=== PATIENT | female | born 1970 ===

== ENCOUNTER 2020-02-20 14:11 | Emergency (ER) | payer OTHER ==
[2020-02-20] MEDS ORDERED: KETOROLAC 15 MG/ML 1 ML VIAL IVP STA (14:59)
[2020-02-20] MEDS ORDERED: SODIUM CHLORIDE 0.9% 1,000 ML IV ONE (14:59)
[2020-02-20] MEDS ORDERED: SODIUM CHLORIDE 0.9% 1,000 ML IV SCH (15:00)
--- NOTE | 2020-02-20 15:02 | ED ---
General Adult HPI - General Chief complaint: Nausea/Vomiting/Diarrhea Stated complaint: Diarrhea Time Seen by Provider: 02/20/20 14:51 Source: patient, RN notes reviewed, old records reviewed Mode of arrival: ambulatory Limitations: no limitations - History of Present Illness Initial comments: Patient's 49-year-old female who presents emergency department today for evaluation for concern for diarrhea past 4 days as well as multiple episodes were she feels like she is going to pass out. She states that she has no history of melena is concerned for possible Covid 19 infection. Patient states that she was tested 2 days ago and was negative. Patient reports that she has a significant cough or chest pain at this time. Denies difficulty breathing. She reports that she has been taking Tylenol and [id number] vitamins. Denies any bloody stools. Denies abdominal tenderness. Patient reports history of anemia. - Related Data Home Medications Medication Instructions Recorded Confirmed Acetaminophen Tab [Tylenol Tab] 1,000 mg PO Q4H PRN 02/20/20 02/20/20 Previous Rx's Medication Instructions Recorded Loperamide [Imodium] 2 mg PO QID #12 capsule 02/20/20 Ondansetron Odt [Zofran Odt] 4 mg PO Q8HR PRN #12 tab 02/20/20 Allergies Allergy/AdvReac Type Severity Reaction Status Date / Time No Known Allergies Allergy Verified 02/20/20 16:57 Review of Systems ROS Statement: Those systems with pertinent positive or pertinent negative responses have been documented in the HPI. ROS Other: All systems not noted in ROS Statement are negative. Past Medical History Past Medical History: No Reported History History of Any Multi-Drug Resistant Organisms: None Reported Past Surgical History: No Surgical Hx Reported Past Psychological History: No Psychological Hx Reported Smoking Status: Never smoker Past Alcohol Use History: None Reported Past Drug Use History: None Reported General Exam - General Exam Comments Initial Comments: 49-year-old female. Alert and oriented 3. No distress. Limitations: no limitations General appearance: alert, in no apparent distress Head exam: Present: atraumatic, normocephalic, normal inspection Eye exam: Present: normal appearance, PERRL, EOMI. Absent: scleral icterus, conjunctival injection, periorbital swelling ENT exam: Present: normal exam, mucous membranes moist Neck exam: Present: normal inspection. Absent: tenderness, meningismus, lymphadenopathy Respiratory exam: Present: normal lung sounds bilaterally. Absent: respiratory distress, wheezes, rales, rhonchi, stridor Cardiovascular Exam: Present: regular rate GI/Abdominal exam: Present: soft, normal bowel sounds. Absent: distended, tenderness, guarding, rebound, rigid Extremities exam: Present: normal inspection, full ROM, normal capillary refill. Absent: tenderness, pedal edema, joint swelling, calf tenderness Back exam: Present: normal inspection Neurological exam: Present: alert, oriented X3, CN II-XII intact Psychiatric exam: Present: normal affect, normal mood Course Vital Signs 02/20/20 14:29 Temperature 98.6 F Pulse Rate 78 Respiratory 20 Rate Blood Pressure 132/84 O2 Sat by Pulse 98 Oximetry EKG Findings - EKG Comments: EKG Findings:: EKG performed at 1603 showed normal sinus rhythm normal ECG. Ventricular rate of 67 bpm. MI interval 156. Stressors and 4 ms 84 ms. QT QTc is 422/445 ms. Medical Decision Making - Medical Decision Making 49-year-old female there is healthy presents with diarrhea for the past 4 days lack of appetite. Patient has no significant difficulty breathing. Vitals are stable. Patient has positive for virus infection. Labs are reviewed and unremarkable. Patient was given fluid bolus. Discussed symptom treatment for nausea and diarrhea with Zofran and Imodium. Discussed self when standing following up with PCP. - Lab Data Result diagrams: 02/20/20 15:50 02/20/20 15:50 Lab Results 02/20/20 02/20/20 02/20/20 Range/Units 15:50 15:50 15:50 WBC 5.5 (3.8-10.6) k/uL RBC 5.62 H (3.80-5.40) m/uL Hgb 12.3 (11.4-16.0) gm/dL Hct 39.0 (34.0-46.0) % MCV 69.4 L (80.0-100.0) fL MCH 22.0 L (25.0-35.0) pg MCHC 31.7 (31.0-37.0) g/dL RDW 15.8 H (11.5-15.5) % Plt Count 188 (150-450) k/uL MPV 7.8 Neutrophils % 67 % Lymphocytes % 22 % Monocytes % 6 % Eosinophils % 1 % Basophils % 1 % Neutrophils # 3.7 (1.3-7.7) k/uL Lymphocytes # 1.2 (1.0-4.8) k/uL Monocytes # 0.3 (0-1.0) k/uL Eosinophils # 0.1 (0-0.7) k/uL Basophils # 0.1 (0-0.2) k/uL Hypochromasia Moderate Microcytosis Marked PT 10.0 (9.0-12.0) sec INR 1.0 (<1.2) APTT 23.3 (22.0-30.0) sec Sodium 137 (137-145) mmol/L Potassium 4.7 (3.5-5.1) mmol/L Chloride 105 (98-107) mmol/L Carbon Dioxide 27 (22-30) mmol/L Anion Gap 5 mmol/L BUN 7 (7-17) mg/dL Creatinine 0.45 L (0.52-1.04) mg/dL Est GFR (CKD-EPI)AfAm >90 (>60 ml/min/1.73 sqM) Est GFR (CKD-EPI)NonAf >90 (>60 ml/min/1.73 sqM) Glucose 104 H (74-99) mg/dL Plasma Lactic Acid Jeremiah (0.7-2.0) mmol/L Calcium 9.4 (8.4-10.2) mg/dL Magnesium 1.9 (1.6-2.3) mg/dL Total Bilirubin 0.5 (0.2-1.3) mg/dL AST 24 (14-36) U/L ALT 18 (4-34) U/L Alkaline Phosphatase 64 (38-126) U/L Lactate Dehydrogenase 464 (313-618) U/L C-Reactive Protein <5.0 (<10.0) mg/L Total Protein 7.8 (6.3-8.2) g/dL Albumin 4.2 (3.5-5.0) g/dL Coronavirus (PCR) (Not Detectd) 02/20/20 02/20/20 Range/Units 15:50 15:50 WBC (3.8-10.6) k/uL RBC (3.80-5.40) m/uL Hgb (11.4-16.0) gm/dL Hct (34.0-46.0) % MCV (80.0-100.0) fL MCH (25.0-35.0) pg MCHC (31.0-37.0) g/dL RDW (11.5-15.5) % Plt Count (150-450) k/uL MPV Neutrophils % % Lymphocytes % % Monocytes % % Eosinophils % % Basophils % % Neutrophils # (1.3-7.7) k/uL Lymphocytes # (1.0-4.8) k/uL Monocytes # (0-1.0) k/uL Eosinophils # (0-0.7) k/uL Basophils # (0-0.2) k/uL Hypochromasia Microcytosis PT (9.0-12.0) sec INR (<1.2) APTT (22.0-30.0) sec Sodium (137-145) mmol/L Potassium (3.5-5.1) mmol/L Chloride (98-107) mmol/L Carbon Dioxide (22-30) mmol/L Anion Gap mmol/L BUN (7-17) mg/dL Creatinine (0.52-1.04) mg/dL Est GFR (CKD-EPI)AfAm (>60 ml/min/1.73 sqM) Est GFR (CKD-EPI)NonAf (>60 ml/min/1.73 sqM) Glucose (74-99) mg/dL Plasma Lactic Acid Jeremiah 0.7 (0.7-2.0) mmol/L Calcium (8.4-10.2) mg/dL Magnesium (1.6-2.3) mg/dL Total Bilirubin (0.2-1.3) mg/dL AST (14-36) U/L ALT (4-34) U/L Alkaline Phosphatase (38-126) U/L Lactate Dehydrogenase (313-618) U/L C-Reactive Protein (<10.0) mg/L Total Protein (6.3-8.2) g/dL Albumin (3.5-5.0) g/dL Coronavirus (PCR) Detected A (Not Detectd) - Radiology Data Radiology results: report reviewed Normal chest x-ray. No sign of pneumonia. Disposition Clinical Impression: COVID-19 Disposition: HOME SELF-CARE Condition: Good Instructions (If sedation given, give patient instructions): Acute Diarrhea (ED), Viral Syndrome (ED) Additional Instructions: Patient should quarantine for 14 days. Take the Imodium only as needed for severe diarrhea and nausea medicine as needed. Patient should continue her vitamins. Rest, remain hydrated. Prescriptions: Loperamide [Imodium] 2 mg PO QID #12 capsule Ondansetron Odt [Zofran Odt] 4 mg PO Q8HR PRN #12 tab PRN Reason: Nausea Is patient prescribed a controlled substance at d/c from ED?: No Referrals: None,Stated [Primary Care Provider] - 1-2 days Time of Disposition: 17:29
[2020-02-20 16:08] LABS: Basophils # (A) 0.1 k/uL (0-0.2); Basophils % (A) 1 %; Eosinophils # (A) 0.1 k/uL (0-0.7); Eosinophils % (A) 1 %; HGB 12.3 gm/dL (11.4-16.0); Hypochromasia Moderate; Lymphocytes # (A) 1.2 k/uL (1.0-4.8); Lymphocytes % (A) 22 %; MCHC 31.7 g/dL (31.0-37.0); MCV 69.4 fL (80.0-100.0); Mean Platelet Volume 7.8; Microcytosis Marked; Monocytes # (A) 0.3 k/uL (0-1.0); Monocytes % (A) 6 %; Neutrophils # (A) 3.7 k/uL (1.3-7.7); Neutrophils % (A) 67 %; Platelet Count 188 k/uL (150-450); RBC 5.62 m/uL (3.80-5.40); RDW 15.8 % (11.5-15.5); WBC 5.5 k/uL (3.8-10.6)
[2020-02-20 16:28] LABS: Partial Thromboplastin Time 23.3 sec (22.0-30.0)
[2020-02-20 16:29] LABS: ALT 18 U/L (4-34); AST 24 U/L (14-36); African American GFR (CKD) >90 (>60 ml/min/1.73 sqM); Albumin 4.2 g/dL (3.5-5.0); Alkaline Phosphatase 64 U/L (38-126); Anion Gap 5 mmol/L; Blood Urea Nitrogen 7 mg/dL (7-17); Calcium 9.4 mg/dL (8.4-10.2); Carbon Dioxide 27 mmol/L (22-30); Chloride 105 mmol/L (98-107); Glucose 104 mg/dL (74-99); LDH 464 U/L (313-618); Magnesium 1.9 mg/dL (1.6-2.3); Non-African American GFR(CKD) >90 (>60 ml/min/1.73 sqM); Potassium 4.7 mmol/L (3.5-5.1); Sodium 137 mmol/L (137-145); Total Bilirubin 0.5 mg/dL (0.2-1.3); Total Protein 7.8 g/dL (6.3-8.2)
[2020-02-20 16:31] LABS: C Reactive Protein <5.0 mg/L (<10.0)
--- NOTE | 2020-02-20 16:55 | XR ---
EXAMINATION TYPE: XR chest 1V DATE OF EXAM: 02/20/2020 COMPARISON: NONE HISTORY: Diarrhea. Cough. TECHNIQUE: Single view FINDINGS: Heart and mediastinum are normal. Lungs are clear. Diaphragm is normal. Bony thorax appears normal. IMPRESSION: Normal chest. Normal heart.
[2020-02-20 18:07] VITALS: BP 130/77; PULSE 65; RESP 16; TEMP 98.1
== END 2020-02-20 18:05 | disposition home or self-care (01) ==
LOC: EC 14:11
DX: U07.1 COVID-19 (principal); R19.7 Diarrhea, unspecified
CPT/HCPCS: 36415; 93005; 80053; 83605; 83615; 83735; 85025; 85610; 85730; 86140; 84145; 87635; 71045; 96374; 96361 ×2; 99284; J1885

== ENCOUNTER 2020-02-22 10:02 | Emergency (ER) | payer OTHER ==
[2020-02-22] MEDS ORDERED: IBUPROFEN 600 MG TAB PO STA (10:21)
[2020-02-22] MEDS ORDERED: ACETAMINOPHEN TAB 500 MG TAB PO STA (10:21)
[2020-02-22] MEDS ORDERED: SODIUM CHLORIDE 0.9% 1,000 ML IV ONE (10:21)
[2020-02-22 10:42] LABS: Basophils % (A) 1 %; Eosinophils # (A) 0.2 k/uL (0-0.7); Eosinophils % (A) 3 %; HCT 39.9 % (34.0-46.0); HGB 11.5 gm/dL (11.4-16.0); Hypochromasia Moderate; Lymphocytes # (A) 1.5 k/uL (1.0-4.8); Lymphocytes % (A) 28 %; MCH 19.9 pg (25.0-35.0); MCHC 28.8 g/dL (31.0-37.0); Mean Platelet Volume 7.8; Microcytosis Marked; Monocytes # (A) 0.3 k/uL (0-1.0); Monocytes % (A) 6 %; Neutrophils # (A) 3.3 k/uL (1.3-7.7); Neutrophils % (A) 61 %; Platelet Count 233 k/uL (150-450); RBC 5.78 m/uL (3.80-5.40); WBC 5.4 k/uL (3.8-10.6)
--- NOTE | 2020-02-22 10:42 | ED ---
General Adult HPI - General Chief complaint: Syncope Stated complaint: Dizziness,Nausea,Near Syncope - Revisit Source: patient, RN notes reviewed, old records reviewed Mode of arrival: wheelchair Limitations: physical limitation - History of Present Illness Initial comments: Is a 49-year-old female who was recently diagnosed with COVID. Patient states she's had diarrhea and body aches. Patient states yesterday she was feeling better and today the aches and diarrhea or back so she decided come back to the emergency department. Patient states she got lightheaded but didn't pass out but felt very lightheaded and tired. Patient states the fatigue quite significant. Patient denies any shortness of breath or difficulty breathing. Patient denies any fevers today. Patient denies any loss of taste or smell. Patient denies any chest pain or palpitations. - Related Data Home Medications Medication Instructions Recorded Confirmed Acetaminophen Tab [Tylenol Tab] 1,000 mg PO Q4H PRN 02/20/20 02/22/20 Previous Rx's Medication Instructions Recorded Loperamide [Imodium] 2 mg PO QID #12 capsule 02/20/20 Ondansetron Odt [Zofran Odt] 4 mg PO Q8HR PRN #12 tab 02/20/20 Allergies Allergy/AdvReac Type Severity Reaction Status Date / Time No Known Allergies Allergy Verified 02/22/20 10:35 Review of Systems ROS Statement: Those systems with pertinent positive or pertinent negative responses have been documented in the HPI. ROS Other: All systems not noted in ROS Statement are negative. Past Medical History Past Medical History: No Reported History History of Any Multi-Drug Resistant Organisms: None Reported Past Surgical History: No Surgical Hx Reported Past Psychological History: No Psychological Hx Reported Smoking Status: Never smoker Past Alcohol Use History: None Reported Past Drug Use History: None Reported General Exam - General Exam Comments Initial Comments: GENERAL: Patient is well-developed and well-nourished. Patient is nontoxic and well- hydrated and is in no acute distress. ENT: Neck is soft and supple. No significant lymphadenopathy is noted. Oropharynx is clear. Moist mucous membranes. Neck has full range of motion without eliciting any pain. EYES: The sclera were anicteric and conjunctiva were pink and moist. Extraocular movements were intact and pupils were equal round and reactive to light. Eyelids were unremarkable. PULMONARY: Unlabored respirations. Good breath sounds bilaterally. No audible rales rhonchi or wheezing was noted. CARDIOVASCULAR: There is a regular rate and rhythm without any murmurs gallops or rubs. ABDOMEN: Soft and nontender with normal bowel sounds. SKIN: Skin is clear with no lesions or rashes and otherwise unremarkable. NEUROLOGIC: Patient is alert and oriented x3. Cranial nerves II through XII are grossly intact. Motor and sensory are also intact. Normal speech, volume and content. Symmetrical smile. MUSCULOSKELETAL: Normal extremities with adequate strength and full range of motion. No lower extremity swelling or edema. No calf tenderness. LYMPHATICS: No significant lymphadenopathy is noted PSYCHIATRIC: Normal psychiatric evaluation. Limitations: physical limitation Course Vital Signs 02/22/20 10:06 Temperature 98.3 F Pulse Rate 79 Respiratory 18 Rate Blood Pressure 124/64 O2 Sat by Pulse 99 Oximetry Medical Decision Making - Medical Decision Making EKG shows normal sinus rhythm at 63 bpm NE interval is 158 QRSs 86 QT interval 424 QTC is 433 per patient's EKG shows no ST segment elevation or depression. Chest x-ray shows no acute abnormality. Patient received a liter of normal saline. - Lab Data Result diagrams: 02/22/20 10:33 02/22/20 10:33 Lab Results 02/22/20 02/22/20 Range/Units 10:33 10:33 WBC 5.4 (3.8-10.6) k/uL RBC 5.78 H (3.80-5.40) m/uL Hgb 11.5 (11.4-16.0) gm/dL Hct 39.9 (34.0-46.0) % MCV 69.0 L (80.0-100.0) fL MCH 19.9 L (25.0-35.0) pg MCHC 28.8 L (31.0-37.0) g/dL RDW 16.0 H (11.5-15.5) % Plt Count 233 (150-450) k/uL MPV 7.8 Neutrophils % 61 % Lymphocytes % 28 % Monocytes % 6 % Eosinophils % 3 % Basophils % 1 % Neutrophils # 3.3 (1.3-7.7) k/uL Lymphocytes # 1.5 (1.0-4.8) k/uL Monocytes # 0.3 (0-1.0) k/uL Eosinophils # 0.2 (0-0.7) k/uL Basophils # 0.0 (0-0.2) k/uL Hypochromasia Moderate Microcytosis Marked Sodium 140 (137-145) mmol/L Potassium 4.2 (3.5-5.1) mmol/L Chloride 105 (98-107) mmol/L Carbon Dioxide 28 (22-30) mmol/L Anion Gap 7 mmol/L BUN 6 L (7-17) mg/dL Creatinine 0.50 L (0.52-1.04) mg/dL Est GFR (CKD-EPI)AfAm >90 (>60 ml/min/1.73 sqM) Est GFR (CKD-EPI)NonAf >90 (>60 ml/min/1.73 sqM) Glucose 108 H (74-99) mg/dL Calcium 9.4 (8.4-10.2) mg/dL Total Bilirubin 0.6 (0.2-1.3) mg/dL AST 28 (14-36) U/L ALT 22 (4-34) U/L Alkaline Phosphatase 65 (38-126) U/L Total Protein 7.8 (6.3-8.2) g/dL Albumin 4.4 (3.5-5.0) g/dL Disposition Clinical Impression: COVID-19 virus infection Disposition: HOME SELF-CARE Condition: Good Instructions (If sedation given, give patient instructions): Upper Respiratory Infection (ED) Additional Instructions: Patient should return if any difficulty breathing. Patient should continue to hydrate. Patient should take Tylenol or Motrin when necessary for discomfort Is patient prescribed a controlled substance at d/c from ED?: No Referrals: None,Stated [Primary Care Provider] - 1-2 days Time of Disposition: 11:37
--- NOTE | 2020-02-22 10:56 | XR ---
EXAMINATION TYPE: XR chest 1V portable DATE OF EXAM: 02/22/2020 COMPARISON: Chest x-ray 2 days ago HISTORY: Covid positive with cough. TECHNIQUE: Single AP portable frontal upright view of the chest is obtained. FINDINGS: Diminished inspiration on current study. There is no suspicious new focal air space opacity , pleural effusion, or pneumothorax seen. The cardiac silhouette size remains within normal limits. The osseous structures are intact. IMPRESSION: Diminish inspiration without new acute infiltrate.
[2020-02-22 10:59] LABS: ALT 22 U/L (4-34); AST 28 U/L (14-36); African American GFR (CKD) >90 (>60 ml/min/1.73 sqM); Albumin 4.4 g/dL (3.5-5.0); Alkaline Phosphatase 65 U/L (38-126); Anion Gap 7 mmol/L; Blood Urea Nitrogen 6 mg/dL (7-17); Calcium 9.4 mg/dL (8.4-10.2); Carbon Dioxide 28 mmol/L (22-30); Chloride 105 mmol/L (98-107); Glucose 108 mg/dL (74-99); Non-African American GFR(CKD) >90 (>60 ml/min/1.73 sqM); Potassium 4.2 mmol/L (3.5-5.1); Sodium 140 mmol/L (137-145); Total Bilirubin 0.6 mg/dL (0.2-1.3); Total Protein 7.8 g/dL (6.3-8.2)
[2020-02-22 11:50] VITALS: BP 119/51; PULSE 64; RESP 16; TEMP 98.1
== END 2020-02-22 11:53 | disposition home or self-care (01) ==
LOC: EC 10:02
DX: U07.1 COVID-19 (principal)
CPT/HCPCS: 36415; 71045; 80053; 85025; 93005; 96360; 99284